=== PATIENT | male | born 1990 ===

== ENCOUNTER 2021-01-26 03:46 | Emergency (ER) | payer SELFPAY ==
[~2021-01-26] VITALS: Ht 177.8 cm; Wt 99.8 kg
--- NOTE | 2021-01-26 04:16 | NUR ---
Called [facility] non emergency line, spoke to portable canteen operator [phone] who states if patient does not want to file police report they are not able to do anything. Patient refuse to file police report.
[2021-01-26] MEDS ORDERED: NEOMY/BACITRA/POLYMYXIN B OINT UD PACKET TP ONE ×2 (04:30→04:32)
[2021-01-26 04:35] VITALS: BP 144/106
--- NOTE | 2021-01-26 04:35 | NUR ---
Patient discharged to home in stable condition. Written and verbal after care instructions given. Patient verbalizes understanding of instructions. Stressed follow up or return to ER for worsening s/s.
== END 2021-01-26 04:36 | disposition home or self-care (01) ==
LOC: ER 03:59
DX: S01.01XA Laceration without foreign body of scalp, initial encounter (principal); Y08.09XA Assault by strike by other specified type of sport equipment, initial encounter; Y92.89 Other specified places as the place of occurrence of the external cause
CPT/HCPCS: A4217; A4663

== ENCOUNTER 2021-02-03 16:14 | Emergency (ER) | payer SELFPAY ==
[~2021-02-03] VITALS: Ht 177.8 cm; Wt 99.8 kg
--- NOTE | 2021-02-03 17:42 | NUR ---
PT WAS EVALUATED BY DR HOLM. PT WAS D/C'd TO HOME. D/C INSTRUCTIONS GIVEN TO THE PT BY DR SORTO.
[2021-02-03 17:43] VITALS: BP 145/81
== END 2021-02-03 18:45 | disposition home or self-care (01) ==
LOC: ER 16:24
DX: S01.01XD Laceration without foreign body of scalp, subsequent encounter (principal); Y08.89XD Assault by other specified means, subsequent encounter
CPT/HCPCS: A4663